=== PATIENT | female | born 1950 | race Caucasian/White ===

== ENCOUNTER 2018-11-15 19:50 | Inpatient (IN) | payer MEDICARE, OTHER ==
[~2018-11-15] VITALS: Ht 170.2 cm; Wt 134.3 kg
--- NOTE | ~2018-11-15 | OP ---
[facility] [address] [place] [address] OPERATIVE REPORT Name: REIN MORTENSEN Room: [address] IN .R.#: [id number] Admission: 11/16/18 Attend Phys: Francisco Núñez MD Discharge: Date of : 48 Report #: [id number] THIS REPORT FOR: //name// CC: Lani Núñez DATE OF SERVICE: 11/16/2018 PREOPERATIVE DIAGNOSIS: Acute appendicitis. POSTOPERATIVE DIAGNOSIS: Acute appendicitis. OPERATION: Laparoscopic appendectomy. SURGEON: Kevin Mcknight MD ANESTHESIA: General. ESTIMATED BLOOD LOSS: Minimal. SPECIMEN: Appendix. DESCRIPTION OF PROCEDURE: After informed consent was obtained, the patient was brought to the operating room and placed supine. SCDs were placed and working. Preoperative antibiotics were administered, general anesthesia was induced. The abdomen was prepped and draped in the usual sterile fashion. A 5 mm incision was made in the left upper quadrant. A 5 mm trocar was placed under direct vision. Pneumoperitoneum established. Right lower quadrant and left lower quadrant 5 mm ports were placed. The appendix was noted to be inflamed consistent with appendicitis. It was grasped and retracted anteriorly. A window was made in the mesoappendix. The base of the appendix was stapled off with a IVELISSE blue load stapler. Mesoappendix was ligated with a IVELISSE white load stapler. Appendix was removed through an Endopouch. The fascia in the right upper quadrant was closed with a [id number] 0 Vicryl. Skin was closed with 4-0 Monocryl. Incisions were sealed with Dermabond. COMPLICATIONS: None. DISPOSITION: The patient was taken to recovery in satisfactory condition. By: 1407 1418Kevin Mcknight MD /nt
[~2018-11-15 19:50] MED LIST: CLONAZEPAM 0.50.5 M1; COUMADIN 2.5MG2.5 M1; COZAAR 50 MG TA50 M1 PO; GLYBURIDE 2.52.5 M1; PROZAC40 MG; SORINE 80 MG TA80 M1; SPIRONOLACTONE25 M1
[2018-11-15 20:06] VITALS: BP 148/54
[2018-11-15 20:26] LABS: ABSOLUTE BASOPHILS 0.1 thou/uL (0.0-0.2); ABSOLUTE EOSINOPHILS 0.2 thou/uL (0.0-0.7); ABSOLUTE MONOCYTES 0.6 thou/uL (0.0-1.2); ABSOLUTE NEUTROPHILS 7.3 thou/uL (1.6-8.1); BASOPHILS 0.8 %; HEMATOCRIT 43.5 % (37.0-47.0); HEMOGLOBIN 14.2 gm/dL (12.0-15.0); LYMPHOCYTES 10.5 %; MCH 28.2 pg (26.0-34.0); MCHC 32.8 g/dL (28.0-37.0); MCV 86.1 fL (80.0-100.0); MONOCYTES 6.2 %; MPV 7.8 fl. (7.2-11.1); NUCLEATED RBCS 0 /100WBC; PLATELET COUNT* 258 thou/uL (150-400); POLYS 80.5 %; RBC 5.05 mil/uL (4.20-5.00); RDW-CV 14.6 % (10.5-14.5); WBC 9.1 thou/uL (4.0-11.0)
[2018-11-15 20:48] LABS: ALBUMIN 3.1 g/dL (3.4-5.0); ALKALINE PHOSPHATASE 70 U/L (46-116); ANION GAP 4 mmol/L (7-16); BUN 25 mg/dL (7-18); CALCIUM 9.3 mg/dL (8.5-10.1); CHLORIDE 99 mmol/L (98-107); CO2 37 mmol/L (21-32); CREATININE 1.5 mg/dL (0.6-1.3); GLUCOSE 112 mg/dL (70-99); POTASSIUM 4.8 mmol/L (3.5-5.1); SGOT 13 U/L (15-37); SGPT 14 U/L (30-65); SODIUM 140 mmol/L (136-145); TOTAL BILIRUBIN 0.3 mg/dL (<0.1-1.0); TOTAL PROTEIN 7.7 g/dL (6.4-8.2); TROPONIN-I LEVEL <0.06 ng/mL (<0.06)
[2018-11-15 21:57] LABS: URINE BILIRUBIN NEGATIVE (Negative); URINE BLOOD TRACE (Negative); URINE CLARITY CLEAR; URINE COLOR YELLOW; URINE GLUCOSE-RANDOM NEGATIVE (Negative); URINE KETONES NEGATIVE (Negative); URINE LEUKOCYTES-REFLEX NEGATIVE (Negative); URINE NITRITE-REFLEX NEGATIVE (Negative); URINE PROTEIN NEGATIVE (Negative); URINE SPECIFIC GRAVITY 1.015 (1.005-1.030); URINE UROBILINOGEN 0.2 E.U./dl (0.2-1.0)
[2018-11-15 23:14] LABS: APTT 55.3 Seconds (25.0-31.3); PROTIME 30.4 Seconds (9.20-11.50)
[2018-11-16] VITALS (11 sets, daily range): BP systolic 93–136; BP diastolic 31–60
--- NOTE | 2018-11-16 05:25 | NUR ---
RECIEVED PT FROM ED ASSESSMENT AND DATA BASE COMPLETED, VERBALIZED UNDERSTANDING DENIES PAIN UPON ARRIVAL TO UNIT. BLOOD CONSENT SIGNED FOR FFP, INFUSING AFTER INFUSION COMPLETED PT C/O ITCHING AND NOTED HIVES ON NECK CHEST AND ARMS, DR HEREDIA NOTIFED ORDER RECIEVED FOR PO BENADRYL VSS O2 82 ON ROOM AIR O2 AT 2L APPLIED AFTER PT ARRIVED TO UNIT. WILL CONITNUE TO [facility] MONITOR.
[2018-11-16 10:49] LABS: INR 1.9; PROTIME 19.4 Seconds (9.20-11.50)
--- NOTE | 2018-11-16 17:47 | EKG ---
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[facility] : 1950 Requested By: Valerie Snyder Order Number: [id number] MD: River Jennings Measurements Intervals [place] Rate: 68 P: 65 ID: 168 QRS: 88 QRSD: 141 T: 45 QT: 440 QTc: 469 Interpretive Statements Sinus rhythm Right bundle branch block Compared to ECG 01/14/2013 11:44:12 Sinus bradycardia no longer present Sinus arrhythmia no longer present Electronically Signed On 11-16-2018 17:47:40 CDT by River Jennings [email or web address] <ELECTRONICALLY SIGNED> By: River Jennings MD, FACC 11/16/18 1747 2100 2100 River Jennings MD, [facility] /EPI
--- NOTE | 2018-11-16 17:49 | NUR ---
PATIENT ALERT AND ORIENTED X 4. VITAL SIGNS STABLE ON 3L O2 NASAL CANULA. AFEBRILE. UP WITH STAND BY ASSIST. IV PATENT AND SALINE LOCKED. DENIES NAUSEA. PAIN BEING MANAGED WITH PO MEDICATION. HOURLY ROUNDS MAINTAINED THROUGHOUT THE SHIFT. CALL LIGHT WITHIN REACH. NURSING WILL CONTINUE TO MONITOR.
--- NOTE | 2018-11-16 17:54 | NUR ---
PATIENT ALERT AND ORIENTED X 4. VITAL SIGNS STABLE ON 3L O2 NASAL CANULA. AFEBRILE. CAPNO IN PLACE. UP WITH ASSIST OF ONE TO THE BATHROOM. IV PATENT WITH FLUIDS INFUSING PER MAR. DENIES PAIN AND NAUSEA AT THIS TIME. TOLERATING CARB CONTROL DIET. HOURLY ROUNDS MAINTAINED THROUGHOUT THE SHIFT. CALL LIGHT WITHIN REACH. NURSING WILL CONTINUE TO MONITOR.
[2018-11-17] VITALS: BP 123/54
[2018-11-17 04:00] VITALS: BP 120/56
[2018-11-17 04:34] LABS: HEMATOCRIT 35.2 % (37.0-47.0); MCH 27.9 pg (26.0-34.0); MCHC 32.1 g/dL (28.0-37.0); MCV 86.8 fL (80.0-100.0); MPV 8.4 fl. (7.2-11.1); NUCLEATED RBCS 0 /100WBC; RBC 4.05 mil/uL (4.20-5.00); RDW-CV 14.8 % (10.5-14.5); WBC 10.8 thou/uL (4.0-11.0)
[2018-11-17 04:47] LABS: HEMOGLOBIN 11.3 gm/dL (12.0-15.0); PLATELET COUNT* 180 thou/uL (150-400)
[2018-11-17 04:57] LABS: CREATININE 1.7 mg/dL (0.6-1.3); POTASSIUM 5.2 mmol/L (3.5-5.1)
--- NOTE | 2018-11-17 05:22 | NUR ---
ASSUMED PT CARE AT 1930. PT ALERT AND ORIENTED X4, POLITE AND COOPERATIVE WITH CARES. IV TO RIGHT AC INFUSING FLUIDS PER MAR. HYDROCODONE ONCE THIS SHIFT. PT ON CAPNO OVERNIGHT. ON 3L O2 PER NC. NO NAUSEA. THREE LAP SITES TO ABDOMEN INTACT SEALED WITH DERMABOND. USES CALL LIGHT APPROPRIATELY. CALL LIGHT AND FREQUENTLY USED ITEMS WITHIN REACH. HOURLY ROUNDING IN PROGRESS, WILL CONTINUE TO MONITOR.
[2018-11-17 06:38] LABS: ABSOLUTE LYMPHOCYTES 0.4 thou/uL (0.8-5.3); ABSOLUTE MONOCYTES 0.1 thou/uL (0.0-1.2); ABSOLUTE NEUTROPHILS 10.3 thou/uL (1.6-8.1); ATYPICAL MONONUCLEARS 1 %; PLATELET ESTIMATE ADEQUATE
[2018-11-17 08:00] VITALS: BP 121/45
[2018-11-17 12:48] VITALS: BP 121/45
[2018-11-17] MEDS ORDERED: SENNA8.6 MG PO (13:00)
[2018-11-17] MEDS ORDERED: NORCO 5-325 TA1 EACH PO (13:01)
[2018-11-17] MEDS ORDERED: MELATONIN1 MG PO (13:03)
[2018-11-17] MEDS ORDERED: TYLENOL EXTRA500 MG PO (13:04)
--- NOTE | 2018-11-17 14:51 | NUR ---
PT LEFT UNIT BY WHEELCHAIR WITH NURSING STAFF. WENT HOME WITH SIBLING. DISCHARGE PAPERWORK AND PRESCRIPTIONS GIVEN. IV OUT. PERSONAL ITEMS SENT WITH PT.
--- NOTE | 2018-11-19 10:07 | PATH ---
[address] [address] PATHOLOGY RPT PROCEDURE Name: OLGA NELSON Room: [address] IN .R.#: [id number] Admission: 11/16/18 Date of : 48 Discharge: 11/17/18 Report #: [id number] Path Case #: [id number] [facility] Accession Number: [id number] . 01 Material submitted: . APPENDIX . 01 Clinical history: . Acute appendicitis . 02 Diagnosis: Appendix: - Acute appendicitis, periappendicitis and serositis. (JEFFERY:sandrita; 11/18/2018) MBR/11/18/2018 . 02 Electronically signed: . Gary Ellis MD, Pathologist NPI- [id number] . 01 Gross description: . The specimen is received in formalin, labeled "Olga Nelson, appendix", is an appendix measuring 4.6 cm in length and up to 0.7 cm in diameter with abundantly attached mesoappendix measuring 5.4 x 2.7 x 1.4 cm. The proximal resection margin is closed by a linear staple line measuring 1.3 cm in length with an average 0.2 cm width. The staple line and the adjacent serosa is inked black. The proximal serosa and the adjacent mesoappendix shows possible rondon-white exudate with a possible perforation that is 0.4 cm from the distal staple line margin. The lumen is not dilated and the wall has an average thickness of 0.2 cm. No discrete masses or fecalith identified. [employer] tissue is submitted as follows: A1. Proximal margin inked black and perforation inked blue. A2. Mid section and distal tip (SWS; 11/17/2018) SHS/SHS . 02 Pathologist provided ICD-10: K35.80, K65.8 . 02 CPT . 643399 Specimen Comment: A courtesy copy of this report has been sent to Specimen Comment: [phone], , . Specimen Comment: Report sent to ,DR HEREDIA / DR NATALIA DENISE Specimen Comment: A duplicate report has been generated due to demographic updates. Performed at: [address] [place] [address] PATHOLOGY RPT PROCEDURE Name: OLGA NELSON JESUS Room: [address] IN M.R.#: [id number] Admission: 11/16/18 Date of : 48 Discharge: 11/17/18 Report #: [id number] Path Case #: [id number] [facility] [address] [facility] [address], [place], [place] [id number] MD Loki Osborn MD Phone: [phone] Performed at: [address] [place] [id number] MD Gary Ellis MD Phone: [phone]
== END 2018-11-17 13:55 | disposition home or self-care (01) | DRG 342 ==
LOC: M.ERS 19:50 → M.TBA-ER 11-16 00:02 → M.ORTHSURG 11-16 00:02
PROVIDERS: Nurse Practitioner Family; ADMIT Family Medicine
DX: K35.80 Unspecified acute appendicitis (principal); N17.9 Acute kidney failure, unspecified; N18.4 Chronic kidney disease, stage 4 (severe); Z68.42 Body mass index [BMI] 45.0-49.9, adult; E66.01 Morbid (severe) obesity due to excess calories; I48.2 Chronic atrial fibrillation; J44.9 Chronic obstructive pulmonary disease, unspecified; M54.32 Sciatica, left side; M54.31 Sciatica, right side; E11.22 Type 2 diabetes mellitus with diabetic chronic kidney disease; Z79.01 Long term (current) use of anticoagulants; Z79.899 Other long term (current) drug therapy; Z88.8 Allergy status to other drugs, medicaments and biological substances; Z87.891 Personal history of nicotine dependence

== ENCOUNTER 2021-08-08 14:03 | Inpatient (IN) | payer OTHER ==
[~2021-08-08] VITALS: Ht 170.2 cm; Wt 133.7 kg
[~2021-08-08 14:03] MED LIST changes: +MELATONIN1 MG PO; +NORCO 5-325 TA1 EACH PO; +SENNA8.6 MG PO; +TYLENOL EXTRA500 MG PO
[2021-08-08 14:07] VITALS: BP 101/74
[2021-08-08 14:19] LABS: ABSOLUTE EOSINOPHILS 0.2 thou/uL (0.0-0.7); ABSOLUTE LYMPHOCYTES 0.6 thou/uL (0.8-5.3); ABSOLUTE MONOCYTES 0.6 thou/uL (0.0-1.2); ABSOLUTE NEUTROPHILS 7.2 thou/uL (1.6-8.1); BASOPHILS 0.5 %; HEMATOCRIT 43.5 % (37.0-47.0); HEMOGLOBIN 14.1 gm/dL (12.0-15.0); LYMPHOCYTES 7.2 %; MCH 28.5 pg (26.0-34.0); MCHC 32.4 g/dL (28.0-37.0); MCV 88.1 fL (80.0-100.0); MONOCYTES 7.1 %; NUCLEATED RBCS 0 /100WBC; PLATELET COUNT* 201 thou/uL (150-400); POLYS 83.2 %; RBC 4.94 mil/uL (4.20-5.00); RDW-CV 14.8 % (10.5-14.5); WBC 8.7 thou/uL (4.0-11.0)
[2021-08-08 14:23] LABS: CALCIUM 9.5 mg/dL (8.5-10.1); CREATININE 1.7 mg/dL (0.6-1.3); POTASSIUM 4.6 mmol/L (3.5-5.1)
[2021-08-08 14:28] LABS: TOTAL BILIRUBIN 0.6 mg/dL (<0.1-1.0); TOTAL PROTEIN 7.7 g/dL (6.4-8.2)
[2021-08-08] MEDS ORDERED: PERCOCET PO (15:19)
--- NOTE | 2021-08-08 15:47 | NUR ---
PT UNABLE TO GET UP OUT OF BED AND AMBULATE, PT TO BE ADMITTED TO HOSPITAL
[2021-08-08 16:47] LABS: APTT 34.1 Seconds (25.0-31.3); PROTIME 20.3 Seconds (9.20-11.50)
[2021-08-08 18:07] VITALS: BP 100/75
[2021-08-08 18:15] VITALS: BP 97/77
[2021-08-08 19:45] VITALS: BP 110/62
--- NOTE | 2021-08-08 19:48 | NUR ---
pt admitted after fall down 3 stairs. broke her left ankle. pt will have surgery tomorrow to fix ankle. pt inr was 2.0 held the coumadin due to surgery tomorrow. pt will be npo after midnight.
[2021-08-09 04:07] LABS: INR 2.2; PROTIME 21.8 Seconds (9.20-11.50)
[2021-08-09 05:08] VITALS: BP 124/44
--- NOTE | 2021-08-09 06:51 | NUR ---
PT SLEPT OFF AND ON OVERNIGHT. RECEIVING PAIN MED PO AND IV PRN WITH FAIR L ANKLE PAIN CONTROL.NPO SINCE MIDNIGHT, TO OR THIS AFTERNOON. AOX4, ABLE TO USE CALL LITE AND MAKE NEEDS KNOWN. PT TURNED AND REPOSITIONED FOR COMFORT PRN. O2 2L NC. BED ALARM ON FOR SAFETY, CALL LITE IN EASY REACH. USING BEDPAN WITH ASSIST TO VOID OVERNIGHT. LLE, WITH JOSÉ ANTONIO WRAP SOFT BRACE IN PLACE.
[2021-08-09 08:00] VITALS: BP 129/57
--- NOTE | 2021-08-09 09:40 | NUR ---
Pt is admitted on 08/08/21 with Left Ankle Fx. Attempted to assess patient but she is very sedated from pain medications. She is to have an ORIF of her Left Ankle later today. Called sister - Yu Hernandez at: [phone] - who is a RN/Wound Care nurse presently in [place], [place] and about to board a flight to another amo so discussion was very brief. Yu is stating pt has no one at home to assist patient so she needs SNF. In medical records it is noted another sister - Melissa Campbell so will attempt to clarify if patient lives alone or with another sister. Pt was recently at [facility] for low blood sugar and family is contributing this to her fall. Yu is asking about options for continued Rehab. Discussed SNF options - [facility], [facility], [facility], and [facility]. Sister is stating she is aware of all the older facilities in the area and their previous citation hx. Discussed new facility - [facility]. Sister intends to speak to family and call friends who are social workers to obtain their opinions of what SNF would be the best option. Daughter - Yudy lives in [place]. For now Yu is leaning towards [facility] and [facility]. Will check both of those facilities today for bed availability. Discussed with sister that with an ankle fx likely a short stay and possible discharge with in 24 -48 hours of sx if pain controlled. Yu is asking about Acute Rehab. Discussed at length an ankle fracture is not a qualifying diagonosis. Pt was independent previously in ADL's and Mobility. She does have a rollinator that she utilizes when her back is bothering her. CM to continue to follow for discharge planning and SNF placement.
[2021-08-09] MEDS ORDERED: HYDRALAZINE 2525 MG PO (11:05)
[2021-08-09] MEDS ORDERED: SERTRALINE HCL100 MG PO (11:06)
[2021-08-09] MEDS ORDERED: XARELTO1 EACH PO (11:08)
[2021-08-09] MEDS ORDERED: AMLODIPINE-OLM1 EAC1 PO (11:09)
[2021-08-09] MEDS ORDERED: GLIPIZIDE 10 MG10 MG PO (11:10)
[2021-08-09 11:38] VITALS: BP 142/68
--- NOTE | 2021-08-09 14:25 | NUR ---
PATIENT OFF FLOOR TO PRE-OP VIA BED ACCOMPANIED BY PACU NURSES.
[2021-08-09 19:47] VITALS: BP 134/42
[2021-08-10] VITALS (9 sets, daily range): BP systolic 99–147; BP diastolic 29–57
[2021-08-10 04:06] LABS: HEMATOCRIT 40.9 % (37.0-47.0); HEMOGLOBIN 12.5 gm/dL (12.0-15.0); MCH 28.2 pg (26.0-34.0); MCHC 30.6 g/dL (28.0-37.0); MCV 92.2 fL (80.0-100.0); MPV 8.3 fl. (7.2-11.1); RBC 4.44 mil/uL (4.20-5.00); RDW-CV 15.2 % (10.5-14.5); WBC 11.8 thou/uL (4.0-11.0)
[2021-08-10 04:21] LABS: INR 2.8
[2021-08-10 04:26] LABS: CALCIUM 8.2 mg/dL (8.5-10.1); CREATININE 2.7 mg/dL (0.6-1.3); MAGNESIUM 2.2 mg/dL (1.8-2.4); POTASSIUM 4.9 mmol/L (3.5-5.1)
[2021-08-10 04:27] LABS: PROTIME 27.7 Seconds (9.20-11.50)
[2021-08-10 09:12] LABS: BE 0.5 mmol/L (-2 to +3); PO2 76.4 mmHg (75.0-100.0)
[2021-08-10 09:18] LABS: PCO2 93.5 mmHg (35.0-45.0)
[2021-08-10 09:19] LABS: pH 7.155 (7.340-7.450)
[2021-08-10] MEDS ORDERED: ROSUVASTATIN CA10 MG PO (11:09)
[2021-08-10] MEDS ORDERED: FUROSEMIDE 40 M40 MG PO (11:13)
--- NOTE | 2021-08-10 11:47 | EKG ---
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 : 1950 Requested By: Larisa Dumont Order Number: [id number] MD: Raffaele Blanton Measurements Intervals [place] Rate: 75 P: 69 PA: 179 QRS: 118 QRSD: 148 T: 25 QT: 437 QTc: 489 Interpretive Statements Sinus rhythm RBBB and LPFB Compared to ECG 11/15/2018 21:00:34 Left posterior fascicular block now present Electronically Signed On 08-10-2021 11:47:27 ETL BI DEVELOPER by Raffaele Blanton [email or web address] <ELECTRONICALLY SIGNED> By: Raffaele Blanton MD, [facility] 08/10/21 1147 1453 1453 Raffaele Blanton MD, [facility] /EPI
--- NOTE | 2021-08-10 13:51 | NUR ---
Pt is post op day 1 - of an ORIF of Left Ankle. Per doctor pt became sedated with pain medications. PT saw pt but pt was not able to participate very well. Family would like pt to discharge to SNF. Completed online DA124 form - Code: [id number]. Provided code to physician. With pt being sedated in therapy today this delays in getting pt accepted and approved for SNF. Pt's sister - Yu provided 3 choices of SNF: [facility]st [facility] - [facility] - spoke with Kaycee and she is checking to see if they will have bed availability for Fri/Sat. Faxed clinicals to: [phone]. 2nd Choice - [facility]. Faxed a referral to: [phone]. Called and left a message for admissions. 3rd Choice - [facility] - Per Nalini they will not have any beds open till possibly 08/14 or 08/15 of next week.
[2021-08-10 15:11] LABS: BE -1.7 mmol/L (-2 to +3); PO2 73.5 mmHg (75.0-100.0)
[2021-08-10 15:15] LABS: PCO2 105.9 mmHg (35.0-45.0); pH 7.087 (7.340-7.450)
[2021-08-10 17:09] LABS: CALCIUM 8.1 mg/dL (8.5-10.1); CREATININE 3.4 mg/dL (0.6-1.3)
[2021-08-10 17:13] LABS: POTASSIUM 6.2 mmol/L (3.5-5.1)
--- NOTE | 2021-08-10 18:08 | NUR ---
TRANSFER FROM [facility] TELEPHONE REPORT GIVEN PRIOR TO ARRIVAL PATIENT TO VIA BED O2 AT 6L NC PATIENT ORIENTED TO CALL LIGHT AND INSTRUCTED NOT TO GET UP WITHOUT ASSISTANCE C/O L ANKLE PAIN WILL CHECK FOR ORDERS AND REASSESS
[2021-08-11] VITALS (17 sets, daily range): BP systolic 96–143; BP diastolic 35–64
--- NOTE | 2021-08-11 06:21 | NUR ---
RADIOLIST CALLED REPORTED HEAD CT NEGATIVE; REPORTED TO ADAM MEJIA
[2021-08-11 07:09] LABS: HEMATOCRIT 37.6 % (37.0-47.0); HEMOGLOBIN 11.4 gm/dL (12.0-15.0); MCH 27.7 pg (26.0-34.0); MCHC 30.3 g/dL (28.0-37.0); MCV 91.4 fL (80.0-100.0); MPV 8.2 fl. (7.2-11.1); RBC 4.12 mil/uL (4.20-5.00); RDW-CV 15.3 % (10.5-14.5); WBC 12.3 thou/uL (4.0-11.0)
[2021-08-11 07:18] LABS: APTT 62.9 Seconds (25.0-31.3); INR 3.9; PROTIME 38.1 Seconds (9.20-11.50)
[2021-08-11 07:25] LABS: CALCIUM 7.7 mg/dL (8.5-10.1); CREATININE 4.2 mg/dL (0.6-1.3); POTASSIUM 5.5 mmol/L (3.5-5.1)
[2021-08-11 07:29] LABS: ALBUMIN 2.2 g/dL (3.4-5.0); TOTAL BILIRUBIN 0.7 mg/dL (<0.1-1.0); TOTAL PROTEIN 6.6 g/dL (6.4-8.2)
--- NOTE | 2021-08-11 08:22 | NUR ---
ASSUMED CARE OF PT 08/10/21 AT APPROX 1915. AT 2056 PHYSICIAN CONTACTED; PT BLOOD PRESSURE 103/30 2ND BP 99/42, ORDER GIVEN TO INCREASE IV FLUIDS TO 120M/H. AT 2256 CONTACTED PHYSICIAN FOR CLARIFICATION IF IV TO BE SALINE LOCKED AFTER CURRENT BAG 1OF1 COMPLETED OR CHANGED TO CONTINUOUS FLUIDS; ORDER GIVEN FOR CONTINUOUS IV FLUIDS NS AT 120M/H. AT APPROX 0545 PT SHOWED SIGNS OF STROKE, STROKE CODE ACTIVATED, CT HEAD COMPLETED, NEUROLOGY CONSULTED. AT 0638 NEURO TELEMED COMPLETED, RECOMMENDATIONS GIVEN FOR CT ANGIOGRAM, MRI OF BRAIN (PT NOT CANDIDATE FOR TPA). DR. GUADARRAMA NOTIFIED BY YOU CALL OF NEURO RECOMMENDATIONS. AT [address] SORENSEN TO PLACE ORDERS RECOMMEDED BY NEURO. DR. SORNESEN ALSO NOTIFIED PT HAS NOT HAD ANY URINE OUTPUT, BLADDER SCAN AT 0152 SHOWED 21MLS; ORDER GIVEN TO CHANGE IV FLUIDS BACK DOWN TO 100M/H.
--- NOTE | 2021-08-11 08:36 | NUR ---
PT STATES TO ASK HER DAUGHTER ABOUT MEDICAL HX FOR MRI SCREENING. PT DAUGHTER SILVIA CALLED AND VERIFIED ABOUT MRI SCREENING.
--- NOTE | 2021-08-11 08:38 | NUR ---
PTS DAUGHTER SILVIA STATED PT WAS IN [facility] X1 MONTH AGO WITH DIABETIC COMA. STATES PT LIVES WITH HER SISTER AT [place]. SISTER IS ABLE TO ASSIST WITH COOKING MEALS, SOME CLEANING, HOWEVER NOT ABLE TO ASSIST PT WITH MOBILITY
--- NOTE | 2021-08-11 09:28 | NUR ---
PT HAVING SWALLOWING ISSUES, POCKETING WATER, NOT ABLE TO DRINK WITHOUT COUGHING. PT MADE NPO AND MEMBER SERVICE SPECIALIST EVAL ORDER ENTERED.
--- NOTE | 2021-08-11 09:30 | EKG ---
[place] [address] ELECTROCARDIOGRAM REPORT Name: ERIN MORTENSEN Room: [address] ADM IN M.R.#: [id number] Admission: 08/08/21 Attend Phys: Larisa Dumont, Discharge: Date of : 48 Date of Service: 08/11/21 0645 Report #: [id number] THIS REPORT FOR: //name// [facility] Test Date: 2021-08-11 Test Time: 06:45:37 Pat Name: ERIN MORTENSEN Department: Room: [address] Gender: F Resource Manager: AMANDA : 1950 Requested By: Gene Zaragoza Order Number: [id number] Hector MD: Raffaele Blanton Measurements Intervals [place] Rate: 72 P: 62 MI: 171 QRS: 103 QRSD: 158 T: 38 QT: 477 QTc: 523 Interpretive Statements Sinus rhythm Right bundle branch block Compared to ECG 08/09/2021 14:53:47 No significant interval change Electronically Signed On 08-11-2021 9:30:41 SURPLUS PROPERTY DISPOSAL AGENT by Raffaele Blanton [email or web address] <ELECTRONICALLY SIGNED> By: Raffaele Blanton MD, [facility] 08/11/21 0930 0645 0645 Raffaele Blanton MD, [facility] /EPI
[2021-08-11 09:42] LABS: BE -2.8 mmol/L (-2 to +3)
[2021-08-11 09:47] LABS: PCO2 83.5 mmHg (35.0-45.0); PO2 145.7 mmHg (75.0-100.0); pH 7.143 (7.340-7.450)
--- NOTE | 2021-08-11 10:14 | NUR ---
ORDERS FROM DR SMITH, MOVE TO ICU. HAND FOLDER CLEARING OUT ROOM IN ICU FOR PT TO TRANSFER TO ONCE MRI DONE.
--- NOTE | 2021-08-11 11:08 | NUR ---
UPON ROUNDING THIS AM AND AFTER PT WENT TO MRI, DECISION MADE BASED ON CXR TO REPEAT COVID TEST. MRI IMMEDIATELY NOTIFEID PT WAS IN MRI AT THE TIME. COVID SWAB RECOLLECTED, SENT TO LAB.
--- NOTE | 2021-08-11 12:07 | NUR ---
THIS RN JUST VERIFIED WITH ICU. PT TO TX TO ICU BED 8, STILL DIRTY.
--- NOTE | 2021-08-11 14:00 | NUR ---
pt reporting 8/10 pain in LLE with surgery. Pt was given narcan this AM. Dr Eric suggested fentanyl as pt NPO r/t swallow issues. Dr Salazar notified to make decision.
--- NOTE | 2021-08-11 14:42 | NUR ---
attempt to call report to macy LOCK AND DAM OPERATOR. will call this RN back
--- NOTE | 2021-08-11 15:01 | NUR ---
JACKIE cavazos given report
--- NOTE | 2021-08-11 15:01 | NUR ---
PLAN OF CARE: PREVIOUS PLAN HAD BEEN FOR PT TO D/C TO [facility] WHEN MEDICALLY STABLE. HOWEVER THAT PLAN IS ON-HOLD AT THIS TIME PT HAS PCR PENDING. IF PT IS COVID POSITIVE [facility] WILL NOT BE ABLE TO ACCEPT THE PT UNITL 10 DAYS POST COVID POSITIVE TEST. CM SPOKE TO THE PT AND HER DTR ARLEN AT THE BEDSIDE TO DISCUSS DPOA. DPOA PAPERWORK COMPLETED. COPY PLACED ON CHART, AND COPIES PROVIDED PT PT AND FAMILY. CM WILL REMAIN AVAILABLE TO ASSIST AND FOLLOW FOR CM D/C PLANNING NEEDS.
--- NOTE | 2021-08-11 15:28 | NUR ---
PT TAKEN TO ICU
[2021-08-11 15:29] LABS: BE -5.7 mmol/L (-2 to +3)
[2021-08-11 15:46] LABS: PCO2 80.5 mmHg (35.0-45.0); pH 7.113 (7.340-7.450)
--- NOTE | 2021-08-11 16:27 | 2DMMODE ---
[place] [address] 2 D/M-MODE ECHOCARDIOGRAM Name: ERIN MORTENSEN [facility] IN .R#: [id number] Admission: 08/08/21 Attend Phys: Larisa Dumont, Discharge: Date of : 48 Date of Service: 08/11/21 1626 Report #: [id number] THIS REPORT FOR: cc: SHMUEL VELEZ APRN, ASHLEY APRN Holkins,Raffaele Garza MD [facility] ~ APPROVED REPORT Study performed: 08/11/2021 15:35:48 EXAM: Comprehensive 2D, Doppler, and color-flow Echocardiogram Patient Location: In-Patient Room #: 001 Status: routine BSA: 2.36 HR: 72 bpm BP: 143/49 mmHg Rhythm: NSR Other Information Study Quality: Adequate Technically limited study due to poor parasternal windows. Indications Dyspnea 2D Dimensions LVOT Diam: 22.38 (18-24mm) Volumes Left Atrial Volume (Systole) LA ESV Index: 20.74 mL/m2 Aortic Valve AoV Peak Eric.: 1.80 m/s AO Peak Gr.: 13.00 mmHg LVOT Max P.81 mmHg AO Mean Gr.: 6.59 mmHg LVOT Mean P.58 mmHg LVOT Max V: 1.48 m/s AO V2 VTI: 39.64 cm LVOT Mean V: 0.85 m/s DINORA (VTI): 3.25 cm2 LVOT V1 VTI: 32.76 cm Mitral Valve E/A Ratio: 0.[address] [address] 2 D/M-MODE ECHOCARDIOGRAM Name: ERIN MORTENSEN Room: [address] IN [facility]#: [id number] Admission: 08/08/21 Attend Phys: Larisa Dumont, Discharge: Date of : 48 Date of Service: 08/11/21 1626 Report #: [id number] MV Decel. Time: 256.92 ms MV E Max Eric.: 1.07 m/s MV PHT: 74.51 ms MVA (PHT): 2.95 cm2 TDI E/Lateral E': 7.64 E/Medial E': 13.38 Medial E' Eric.: 0.08 m/s Lateral E' Eric.: 0.14 m/s Left Ventricle The left ventricle is normal size. There is normal LV segmental wall motion. There is normal left ventricular wall thickness. Left ventricular systolic function is normal. The left ventricular ejection fraction is within the normal range. LVEF is 65%. Grade I - abnormal relaxation pattern. Right Ventricle The right ventricle is normal size. The right ventricular systolic function is normal. Atria The left atrium size is normal. The right atrium size is normal. Aortic Valve Mild aortic valve sclerosis. No aortic regurgitation is present. There is no aortic valvular stenosis. Mitral Valve Mild mitral annular calcification. There is no mitral valve regurgitation noted. No evidence of mitral valve stenosis. Tricuspid Valve The tricuspid valve is normal in structure. There is no tricuspid valve regurgitation noted. Pulmonic Valve The pulmonary valve is normal in structure. There is no pulmonic valvular regurgitation. Great Vessels The aortic root is normal in size. IVC is normal in size and collapses >50% with inspiration. [place] [address] 2 D/M-MODE ECHOCARDIOGRAM Name: ERIN MORTENSEN Room: [address] IN M.R.#: [id number] Admission: 08/08/21 Attend Phys: Larisa Dumont, Discharge: Date of : 48 Date of Service: 08/11/21 1626 Report #: [id number] There is no pericardial effusion. <Conclusion> The left ventricle is normal size. There is normal left ventricular wall thickness. Left ventricular systolic function is normal. The left ventricular ejection fraction is within the normal range. LVEF is 65%. Grade I - abnormal relaxation pattern. The right ventricle is normal size. The left atrium size is normal. Mild aortic valve sclerosis. No aortic regurgitation is present. There is no aortic valvular stenosis. Mild mitral annular calcification. There is no mitral valve regurgitation noted. The tricuspid valve is normal in structure. IVC is normal in size and collapses >50% with inspiration. There is no pericardial effusion. There is normal LV segmental wall motion. <ELECTRONICALLY SIGNED> By: Raffaele Blanton MD, FACC 08/11/21 1626 1626 1626 Raffaele Blanton MD, FACC /INF
--- NOTE | 2021-08-11 16:51 | NUR ---
Pt arrived to the unit around 1514, this RN received report from JACKIE Disla. Pt A&OX2, self and place, has c/o pain but unable to receive any pain medication d/t mental status change. Pt on continuous BiPAP, diminished throughout, RR at 16. S1,S2 heard, pt in SR on the monitor, HR: 73, BP: 140s/40s, generalized edema. Normoactive BSX4, last BM unknown per report, Gaytan in place with minimal output, urine is dark agnes in color. Only skin issues at this time are generalized bruising. Pt is to have a temporary dialysis catheter placed once she is settled in the ICU and intubation after. Pt has a fentanyl allergy on file, this RN asked the pt what her reaction was, pt stated that she became nauseous and threw up profusely the time before this admission. This information was relayed back to Dr. Bah. Will continue to monitor.
--- NOTE | 2021-08-11 19:16 | NUR ---
Physicians at the bedside placing temporary dialysis catheter. This RN received the call that intubation needed to happen per Dr. Bah. Dr. Villa was called over from ED, RIS kit at the bedside, RT present and running BiPAP following Dr. Villa's instructions. At 1743 100mg of Etomidate was administered via PIV, 20mg of succ was administered afterwards. Pt paralyzed and sedated for intubation. Dr. Villa placed a 7.5 ET tube, 22 at the lip. Vent settings to be set by RT. Propofol gtt started and running, will titrate per protocol. Will continue to monitor.
[2021-08-11 20:42] LABS: BE -2.7 mmol/L (-2 to +3)
[2021-08-11 20:51] LABS: PCO2 56.4 mmHg (35.0-45.0); PO2 371.1 mmHg (75.0-100.0)
[2021-08-12] VITALS (37 sets, daily range): BP systolic 117–172; BP diastolic 50–77
[2021-08-12 03:43] LABS: HEMATOCRIT 34.8 % (37.0-47.0); HEMOGLOBIN 10.7 gm/dL (12.0-15.0); MCH 27.8 pg (26.0-34.0); MCHC 30.9 g/dL (28.0-37.0); MCV 90.1 fL (80.0-100.0); MPV 8.3 fl. (7.2-11.1); RBC 3.86 mil/uL (4.20-5.00); RDW-CV 15.2 % (10.5-14.5); WBC 12.3 thou/uL (4.0-11.0)
[2021-08-12 03:58] LABS: CALCIUM 7.8 mg/dL (8.5-10.1); POTASSIUM 5.1 mmol/L (3.5-5.1)
[2021-08-12 11:40] LABS: PROTIME 49.2 Seconds (9.20-11.50)
[2021-08-12 11:43] LABS: INR 5.1
[2021-08-12 22:04] LABS: URINE BLOOD 3+ (Negative); URINE CLARITY SL CLOUDY; URINE COLOR YELLOW; URINE GLUCOSE-RANDOM NEGATIVE (Negative); URINE KETONES TRACE (Negative); URINE LEUKOCYTES NEGATIVE (Negative); URINE NITRITE NEGATIVE (Negative); URINE PROTEIN 1+ (Negative); URINE SPECIFIC GRAVITY 1.025 (1.005-1.030); URINE UROBILINOGEN 0.2 E.U./dl (0.2-1.0)
[2021-08-12 22:08] LABS: URINE BILIRUBIN 1+ (Negative)
[2021-08-12 22:10] LABS: ICTOTEST (BILI CONFIRMATORY) Negative (Negative)
[2021-08-12 22:15] LABS: HYALINE CASTS 4-10 Moderate /LPF (None Seen); SQUAMOUS >10 Many /LPF (0-3)
[2021-08-12 22:16] LABS: BACTERIA 1-9 Few /HPF (None Seen); URINE RBC 3-10 Few /HPF (0-2); URINE WBC 6-15 Few /HPF (0-5)
[2021-08-12 22:17] LABS: CRYSTALS None Seen /LPF (None Seen); MUCUS None Seen strn/LPF (None Seen)
[2021-08-13] VITALS (42 sets, daily range): BP systolic 105–156; BP diastolic 41–64
[2021-08-13 02:33] LABS: HEMATOCRIT 31.4 % (37.0-47.0); HEMOGLOBIN 10.2 gm/dL (12.0-15.0); MCH 28.1 pg (26.0-34.0); MCHC 32.5 g/dL (28.0-37.0); MCV 86.4 fL (80.0-100.0); MPV 7.6 fl. (7.2-11.1); RBC 3.63 mil/uL (4.20-5.00); RDW-CV 14.6 % (10.5-14.5); WBC 6.4 thou/uL (4.0-11.0)
[2021-08-13 02:50] LABS: CALCIUM 7.9 mg/dL (8.5-10.1); CREATININE 3.1 mg/dL (0.6-1.3); PHOSPHORUS* 3.5 mg/dL (2.5-4.9)
[2021-08-13 02:56] LABS: POTASSIUM 4.1 mmol/L (3.5-5.1)
[2021-08-13 06:06] LABS: HEPATITIS B SURFACE AG Negative (Negative)
--- NOTE | 2021-08-13 18:55 | NUR ---
Pt intubated and sedated. Only on propofol for sedation. On CLRT and tolerating. Following commands and comfortable on the vent. Tolerating tubefeeds. Ultrasound guided IV placed by anastesia. No fevers, no aprent pain, VSS, will continue to monitor.
[2021-08-14] VITALS (31 sets, daily range): BP systolic 116–177; BP diastolic 43–80
[2021-08-14 00:03] LABS: PROTIME 25.9 Seconds (9.20-11.50)
[2021-08-14 00:05] LABS: INR 2.6
[2021-08-14 05:07] LABS: INR 2.8; PROTIME 27.7 Seconds (9.20-11.50)
[2021-08-14 05:15] LABS: ALBUMIN 1.8 g/dL (3.4-5.0); CALCIUM 8.2 mg/dL (8.5-10.1); CREATININE 3.2 mg/dL (0.6-1.3); PHOSPHORUS* 3.9 mg/dL (2.5-4.9)
[2021-08-14 05:33] LABS: BE 0.2 mmol/L (-2 to +3); PCO2 38.5 mmHg (35.0-45.0); PO2 76.3 mmHg (75.0-100.0); pH 7.422 (7.340-7.450)
[2021-08-14 05:43] LABS: ALBUMIN 1.8 g/dL (3.4-5.0); CALCIUM 8.2 mg/dL (8.5-10.1); CREATININE 3.2 mg/dL (0.6-1.3); POTASSIUM 5.1 mmol/L (3.5-5.1); TOTAL BILIRUBIN 0.5 mg/dL (<0.1-1.0)
[2021-08-14 08:29] LABS: PLATELET ESTIMATE DECREASED
[2021-08-14 09:56] LABS: HEMATOCRIT 32.9 % (37.0-47.0); HEMOGLOBIN 10.6 gm/dL (12.0-15.0); MCH 28.1 pg (26.0-34.0); MCHC 32.3 g/dL (28.0-37.0); RBC 3.79 mil/uL (4.20-5.00); RDW-CV 14.6 % (10.5-14.5); WBC 5.9 thou/uL (4.0-11.0)
[2021-08-14 09:57] LABS: MPV 8.5 fl. (7.2-11.1); PLATELET COUNT* 146 thou/uL (150-400)
[2021-08-14 09:58] LABS: ABSOLUTE NEUTROPHILS 5.4 thou/uL (1.6-8.1)
[2021-08-14 09:59] LABS: ABSOLUTE LYMPHOCYTES 0.4 thou/uL (0.8-5.3); ABSOLUTE MONOCYTES 0.2 thou/uL (0.0-1.2)
[2021-08-14 15:16] LABS: BE -0.4 mmol/L (-2 to +3); PCO2 46.5 mmHg (35.0-45.0); PO2 87.1 mmHg (75.0-100.0); pH 7.357 (7.340-7.450)
--- NOTE | 2021-08-14 15:32 | NUR ---
Pt is now in the ICU. She is post op day 5 of an ORIF of Left Ankle with now respiratory failure. She is on a vent at 50% Fi02. [facility]charge [facility]. Faxed updates to [facility] today from the weekend. CM to continue to follow for discharge planning.
[2021-08-14 16:28] LABS: CALCIUM 8.6 mg/dL (8.5-10.1); CREATININE 3.2 mg/dL (0.6-1.3); POTASSIUM 4.5 mmol/L (3.5-5.1)
--- NOTE | 2021-08-14 23:44 | NUR ---
2320 REPORT CALLED. PT TRANSPORTED TO 209 VIA BED ON 4L NC. HEMODYNAMICALLY STABLE ON D/C FROM ICU. BREATHING REGULAR AND UNLABORED. BELONGINGS SENT WITH PATIENT.
[2021-08-15 00:20] VITALS: BP 118/51
[2021-08-15 04:20] LABS: HEMATOCRIT 33.6 % (37.0-47.0); HEMOGLOBIN 10.8 gm/dL (12.0-15.0); MCH 27.7 pg (26.0-34.0); MCHC 32.3 g/dL (28.0-37.0); MPV 7.9 fl. (7.2-11.1); RBC 3.91 mil/uL (4.20-5.00); RDW-CV 14.5 % (10.5-14.5); WBC 7.5 thou/uL (4.0-11.0)
[2021-08-15 05:11] LABS: ALBUMIN 1.9 g/dL (3.4-5.0); CALCIUM 8.3 mg/dL (8.5-10.1); CREATININE 3.1 mg/dL (0.6-1.3); POTASSIUM 4.5 mmol/L (3.5-5.1); TOTAL BILIRUBIN 0.6 mg/dL (<0.1-1.0); TOTAL PROTEIN 5.7 g/dL (6.4-8.2)
[2021-08-15 05:30] VITALS: BP 132/48
[2021-08-15 07:55] VITALS: BP 129/58
--- NOTE | 2021-08-15 10:55 | NUR ---
cm asked alicia tavares/ vita for updated evals. covid test dated 08/11, covid not detected. pt uses 4L of O2 at home via [employer]. Pt IV ABX
[2021-08-15 12:00] VITALS: BP 103/52
[2021-08-15 16:00] VITALS: BP 138/59
--- NOTE | 2021-08-15 18:17 | NUR ---
ASSUMMED CARE AT 0730. PT IS ALERT AND ORIENTED. ASSESSMENT DONE. PAIN CONTROL. PT HAS A COLON. PT HAD UNEVENFUL DAY. WILL CONTINUE CARE.
[2021-08-15 20:40] VITALS: BP 131/50
[2021-08-15 23:06] LABS: MYCOPLASMA PNEUMONIA IgG 235 U/mL (0-99); MYCOPLASMA PNEUMONIA IgM <770 U/mL (0-769)
[2021-08-16] VITALS: BP 137/58
[2021-08-16 04:00] VITALS: BP 168/79
[2021-08-16 04:23] LABS: HEMATOCRIT 32.4 % (37.0-47.0); HEMOGLOBIN 10.6 gm/dL (12.0-15.0); MCH 28.3 pg (26.0-34.0); MCHC 32.6 g/dL (28.0-37.0); MCV 86.8 fL (80.0-100.0); MPV 8.2 fl. (7.2-11.1); RBC 3.74 mil/uL (4.20-5.00); RDW-CV 14.7 % (10.5-14.5); WBC 6.3 thou/uL (4.0-11.0)
[2021-08-16 04:38] LABS: CALCIUM 8.5 mg/dL (8.5-10.1); CREATININE 2.8 mg/dL (0.6-1.3); POTASSIUM 4.5 mmol/L (3.5-5.1)
[2021-08-16 08:00] VITALS: BP 111/42
--- NOTE | 2021-08-16 08:25 | NUR ---
PATIENT HAS SLEPT OFF AND ON DURING THE NIGHT. VSS ON 5L 02 VIA NASAL CANNULA. MEDICATIONS GIVEN ORDERED AND CHARTED. MIDLINE TO LEFT UPPER ARM-SL. LEFT FOREARM-SL. LEFT ANKLE ELEVATED ON PILLOW. DRESSING TO LEFT LOWER EXTREMITY IS C/D/I. COLON TO DEPENDENT DRAINAGE WITH YELLOW URINE OUTPUT. FALL PRECAUTIONS IN PLACE AND HOURLY ROUNDS MADE. WILL CONTINUE WITH PLAN OF CARE AND NURSING TO MONITOR.
[2021-08-16 12:00] VITALS: BP 114/54
--- NOTE | 2021-08-16 13:07 | NUR ---
Met with patient to discuss SNF placement. Pt is alert and oriented today but deferred discussion to her daughter - Yudy at: [phone]. Called and discussed SNF placement at [facility] and family is in agreement. Pt was able to participate in therapy for the first time yesterday and clinical updates were faxed to [facility]: [phone]. Called and spoke with Kaycee in admissions. Discussed possible discharge 08/18/21 or over the weekend. Kaycee will likely submit for auth tommorow. Pt does remain on 5 liters. CM to continue to follow for discharge planning.
[2021-08-16 17:17] VITALS: BP 144/46
--- NOTE | 2021-08-16 19:42 | NUR ---
PT SITTING UP TO THE BED TURNED EVERY 2 HOURS. PT HAD ULTRA SOUND ON ABD. WILL CONTINUE TO MONITOR PLAN OF CARE.
[2021-08-16 21:40] VITALS: BP 118/40
[2021-08-17] VITALS: BP 136/58
[2021-08-17 04:00] VITALS: BP 122/53
[2021-08-17 06:04] LABS: HEMATOCRIT 32.6 % (37.0-47.0); HEMOGLOBIN 10.5 gm/dL (12.0-15.0); MCH 27.9 pg (26.0-34.0); MCHC 32.1 g/dL (28.0-37.0); MPV 8.3 fl. (7.2-11.1); RBC 3.75 mil/uL (4.20-5.00)
[2021-08-17 06:21] LABS: CALCIUM 8.4 mg/dL (8.5-10.1); CREATININE 2.5 mg/dL (0.6-1.3); POTASSIUM 4.4 mmol/L (3.5-5.1)
[2021-08-17 07:56] LABS: INR 1.7; PROTIME 16.9 Seconds (9.20-11.50)
[2021-08-17 08:00] VITALS: BP 122/50
--- NOTE | 2021-08-17 09:10 | NUR ---
PATIENT SLEPT WELL THROUGHOUT MOST OF THE NIGHT. VSS ON 5L 02 VIA NASAL CANNULA. MEDICATIONS GIVEN ORDERED AND CHARTED. PATIEN HAS REMAINED NWB ON LEFT EXTREMITY. DRESSING TO LEFT LOWER EXTREMITY IS C/D/I AND LEG/FOOT ELEVATED ON PILLOW. COLON TO DEPENDENT DRAINAGE WITH YELLOW URINE OUTPUT. FALL PRECAUTIONS IN PLACE AND HOURLY ROUNDS MADE. WILL CONTINUE WITH PLAN OF CARE AND NURSING TO MONITOR.
[2021-08-17 12:00] VITALS: BP 117/47; BP 118/60
[2021-08-17 16:00] VITALS: BP 130/53
--- NOTE | 2021-08-17 20:02 | NUR ---
PT UP TO CHAIR WITH PT TODAY AND HAD BATH BY OT. VSS AFEBRILE. PT GETTING IV ANTIBIOTICS AT SCHEDULED TIMES. WILL CONTINUYE TO MONITOR PLAN OF CARE.
[2021-08-17 20:45] VITALS: BP 123/53
[2021-08-18 02:47] VITALS: BP 125/56
[2021-08-18 05:55] VITALS: BP 109/45
--- NOTE | 2021-08-18 06:09 | NUR ---
PATIENT HAS SLEPT WELL THROUGHOUT MOST OF THE NIGHT. VSS ON 4L 02 VIA NASAL CANNULA. MEDICATIONS GIVEN ORDERED AND CHARTED. DRESSING TO LEFT ANKLE IS C/D/I AND EXTREMITY ELEVATED. LEFT UPPER ARM MIDLINE-SL. COLON TO DEPENDENT DRAINAGE WITH YELLOW URINE OUTPUT. FALL PRECAUTIONS IN PLACE AND HOURLY ROUNDS MADE. WILL CONTINUE WITH PLAN OF CARE AND NURSING TO MONITOR.
[2021-08-18 07:59] LABS: HEMATOCRIT 34.2 % (37.0-47.0); HEMOGLOBIN 10.9 gm/dL (12.0-15.0); MCH 27.9 pg (26.0-34.0); MCV 87.2 fL (80.0-100.0); MPV 8.4 fl. (7.2-11.1); RBC 3.92 mil/uL (4.20-5.00); RDW-CV 14.7 % (10.5-14.5); WBC 9.2 thou/uL (4.0-11.0)
[2021-08-18 08:00] VITALS: BP 124/63
[2021-08-18 08:12] LABS: INR 1.4; PROTIME 14.6 Seconds (9.20-11.50)
[2021-08-18 08:31] LABS: CALCIUM 8.5 mg/dL (8.5-10.1); CREATININE 2.3 mg/dL (0.6-1.3); POTASSIUM 4.7 mmol/L (3.5-5.1)
[2021-08-18] MEDS ORDERED: NORVASC5 MG PO (10:15)
[2021-08-18] MEDS ORDERED: DOXYCYCLINE 10100 MG PO (10:45)
[2021-08-18] MEDS ORDERED: PREDNISONE 10 M10 MG PO (10:45)
[2021-08-18 11:25] VITALS: BP 132/51
--- NOTE | 2021-08-18 13:18 | CON ---
[address] [address] CONSULTATION Name: ERIN MORTENSEN Room: [address] IN M.R.#: [id number] Admission: 08/08/21 Attend Phys: Larisa Dumont MD Discharge: Date of : 48 Report #: [id number] THIS REPORT FOR: cc: SHMUEL VELEZ APRN, ASHLEY APRN Khan, Abid R. MD ~ DATE OF CONSULTATION: 08/11/2021 NEPHROLOGY CONSULTATION CONSULTING PHYSICIAN: Larisa Dumont MD REASON FOR CONSULTATION: Acute kidney injury. HISTORY OF PRESENT ILLNESS: A 70-year-old female with a known history of chronic kidney disease, who was admitted with ankle fracture and pain related to that. She underwent ORIF procedure. I am asked to see her because of worsening kidney function. She has also had hypercapnic respiratory failure and is currently on BiPAP. She was last seen in our office on 02/28. Creatinine at that time was 1.4. On admission here, it was 1.7, yesterday 3.4, today 4.2. She has had diminished urine output despite being on IV fluids. She was newly started on ARB and was also on Lasix and Aldactone. Currently, she is stable and without any complaints. She was on losartan as an outpatient as well as spironolactone. REVIEW OF SYSTEMS: Constitutional, psych, heme, eyes, ENT, respiratory, cardiac, GI, , endocrine, all negative except as documented above. PAST MEDICAL HISTORY: Chronic kidney disease stage IIIB, hypertension, diabetes type 2. SOCIAL HISTORY: No current tobacco. FAMILY HISTORY: Not pertinent in 70-year-old female. CURRENT MEDICATIONS: Reviewed. PHYSICAL EXAMINATION: VITAL SIGNS: Blood pressure 107/39, pulse 72, respirations 18, temperature 36.4. GENERAL: No distress. HEENT: Eyes: Open. Ears: Externally normal. NECK: Supple. CARDIOVASCULAR: Regular rate. LUNGS: Diminished [place] [address] CONSULTATION Name: FESTUSERINPRIYA LEE Room: [address] IN ..#: [id number] Admission: 08/08/21 Attend Phys: Larisa Dumont MD Discharge: Date of : 48 Report #: [id number] GASTROINTESTINAL: Negative. MUSCULOSKELETAL: Nontender. NEUROLOGIC: Awake and alert. LABORATORY DATA: White cell count 12.3, hemoglobin 11.4, platelets 151. Sodium 134, potassium 5.5, chloride 96, bicarbonate 29, BUN 50, creatinine 4.2, glucose 130, calcium 7.7, albumin 2.2. ASSESSMENT: 1. Acute kidney injury with a creatinine up to 4.2 on 08/11. Admission creatinine was 1.7. Outpatient creatinine in 12/2020 was 1.4. She was last seen on 02/28 and normally follows with Dr. Ghosh as an outpatient. 2. Chronic kidney disease stage IIIB, followed by Dr. Ghosh as an outpatient. 3. Hypertension. 4. Diabetes type 2. 5. Respiratory acidosis with a pCO2 as high as 106 and a pH as low as 7.08. 6. Hyperkalemia. 7. Left ankle fracture, status post open reduction and internal fixation. PLAN: 1. Discontinue IV fluids. 2. Discontinue spironolactone and losartan. Chest x-ray does show evidence of pulmonary congestion. Fluids will be stopped. We will check renal ultrasound and UA. She needs strict I's and O's. She will be transferred to the ICU. She will have a temporary dialysis catheter placed. Informed consent was obtained from the patient as well as her daughter who was present at the bedside. Discussed with RN. Temporary dialysis catheter will be placed today and she will undergo dialysis today and tomorrow. Plan was also discussed with tubular products fabricator. We will gently ultrafilter as tolerated. Thank you for requesting my opinion in the care and management of this patient. <ELECTRONICALLY SIGNED> By: Leroy Eric MD 08/18/21 1318 1313 1946Amili Eric MD /nt
--- NOTE | 2021-08-18 13:44 | NUR ---
PLAN FOR THE PT TO D/C TODAY TO [facility]. TRANSPORTATION ARRANGED WITH [facility] FOR 1400. RN TO CALL REPORT. CM INFORMED PT'S DTR. CM WILL REMAIN AVAILABLE TO ASSIST AND FOLLOW NEEDED. [facility] PHONE: [phone]
--- NOTE | 2021-08-18 14:09 | NUR ---
PT DISCHARGED TO [facility] REPORT CALLED TO ROB SALEEM. PT WAS TAKEN BY [facility]. FOR STRETCHER VAN. MIDLINE REMOVED WITH OUT DIFFICLTY. FERMORAL CATH REMOVED WITH OUT DIFFICULTY. PT DISCHARGED PT DAUGHTER NOTIFIED. PT DENIED PAIN ON DISCHARGE.
--- NOTE | 2021-08-20 21:54 | CON ---
[address] [address] CONSULTATION Name: ERIN MORTENSEN Room: [address] IN M.R.#: [id number] Admission: 08/08/21 Attend Phys: Larisa Dumont MD Discharge: 08/18/21 Date of : 48 Report #: [id number] THIS REPORT FOR: cc: SHMUEL VELEZ APRN, ASHLEY APRN Pervez, Adeel MD ~ DATE OF CONSULTATION: 08/11/2021 REQUESTING PHYSICIAN: Dr. Salazar. INDICATION FOR CONSULTATION: Acute hypercarbic respiratory failure. HISTORY OF PRESENT ILLNESS: A 70-year-old female has a history of morbid obesity, body mass index is 45. She has an extensive history of smoking in the past as well, but is reported to have discontinued more than 25 years ago. The patient does use oxygen while asleep. She is not on a CPAP or BiPAP at home, has at least 2 doses of COVID-19 vaccine. I do not have details available. The patient has had 2 recent admissions to an outside institution with altered mental status, at one point had hypoglycemia as well. She had fallen and had injury to her left lower extremity and therefore was admitted here at this time. She did receive small amounts of narcotics during this admission. She had a total of 6 mg of morphine, 2 tablets of Percocet administered. The patient subsequently developed altered mental status and has received Narcan. There is reported to be some response to Narcan. Her altered mental status; however, appears to be out of proportion to the small amounts of narcotics she has received. There is a further worsening in her respiratory status today. She is markedly drowsy, but arousable. She was on BiPAP overnight. Settings were changed this morning as well this afternoon due to her having significant hypercarbia as well as low pH. She, however, is oxygenating adequately on 40-45% FiO2. She is markedly drowsy and unable to provide a further history or review of systems. PAST MEDICAL HISTORY: Morbid obesity, body mass index is 45; nocturnal hypoxemia, likely due to underlying obstructive sleep apnea and obesity hypoventilation syndrome, not known to me if the patient has refused BiPAP while asleep in the past; atrial fibrillation, on anticoagulation with Coumadin; diabetes; sciatica; COPD; hysterectomy; stomach staple; cholecystectomy. SOCIAL HISTORY: Extensive history of smoking, but discontinued more than 25 years ago. No known history of heavy alcohol use or illegal drug use. CURRENT MEDICATIONS: [place] [address] CONSULTATION Name: ERIN MORTENSEN Room: [address]#: [id number] Admission: 08/08/21 Attend Phys: Larisa Dumont MD Discharge: 08/18/21 Date of : 48 Report #: [id number] HOME MEDICATIONS: List also in [employer] reviewed, amongst other medications noted to be on [place] as well as sotalol at home. PHYSICAL EXAMINATION: GENERAL: She is drowsy. She is arousable. She is on 45% FiO2 with BiPAP. I switched her over to 11/12. She is saturating 97%. She is breathing at the set rate, which is 24. VITAL SIGNS: Has a pulse of 72, blood pressure 107/39. She is afebrile with a temperature of 36.4. HEENT: Head is normocephalic and atraumatic. She has a narrow airway. NECK: Does not show raised JVP, asymmetry, mass or lymph nodes. CHEST: Symmetrical expansion on inspection and palpation. On auscultation, breath sounds are bilaterally equal, but decreased. I do not hear any added sounds. HEART: Irregular, but no murmur. ABDOMEN: Soft and nontender. EXTREMITIES: Lower extremities do show 1+ edema bilaterally. The bandage in place on the left lower extremity. LABORATORY DATA: The patient's chest x-ray shows bilateral radiopaque densities, which could indicate either infiltrates or increase in pulmonary vascular congestion, appears likely to me that there is a combination of the two. Lab work in [facility] reviewed, consistent with acute renal failure. ASSESSMENT AND PLAN: 1. Acute on chronic hypercarbic respiratory failure. In the background, the patient likely has significant obstructive sleep apnea and obesity hypoventilation syndrome, may have COPD as well. The etiology of decompensation now is not fully defined. Note that she has had 2 recent admissions to another hospital for altered mental status as well. She has received small amounts of narcotics. These may have played a role. However, I do not feel that this is likely to be the primary etiology of her decompensation. For now, we will leave her on the BiPAP. We will repeat arterial blood gases. If she fails to improve, then we will consider endotracheal intubation. Repeat arterial blood gas soon is ordered. 2. Altered mental status. See discussion above. Neurology service is also being consulted. 3. Pulmonary infiltrates. She has received at least 2 doses of COVID-19 vaccine, unclear if she received a booster as well. COVID-19 antigen is now negative. PCR is pending. I ordered more cultures and serologies. She is on doxycycline. We went ahead and ordered cefepime as well. Note that after the initial bolus, the doses ordered is 0.5 grams. If her creatinine clearance improves, then this may need to be increased. We will do [place] [address] CONSULTATION Name: ERIN MORTENSEN Room: [address] IN M.R.#: [id number] Admission: 08/08/21 Attend Phys: Larisa Dumont MD Discharge: 08/18/21 Date of : 48 Report #: [id number] 4. Acute on chronic renal failure, baseline creatinine 1.7. I understand that she will be undergoing hemodialysis today, which should help her respiratory failure as well. 5. Obstructive sleep apnea with obesity hypoventilation syndrome, the history is consistent with this. I do not have a previous sleep study available. 6. Bronchospasm. There is likely a component of this as well. She may have underlying chronic obstructive pulmonary disease. I would give her Solu-Medrol. I will also give her nebulized bronchodilators. 7. Atrial fibrillation/long-term anticoagulation with Coumadin. I would like to check a 2D echo as well. 8. Left lower extremity injury, status post open reduction and internal fixation of ankle fracture yesterday. The amount of narcotics administered on the floor is fairly small. I will check and see if she has received more narcotics during the OR as well. 9. Diabetes/hyperglycemia/recent hypoglycemia, insulin sliding scale for now. 10. Gastrointestinal prophylaxis. She is ordered p.o. Protonix. We will switch this to IV Protonix and Pepcid if she continues to not be able to take enteral medications. The patient is critically ill at this time. Total time spent providing critical care to this patient today exceeds 41 minutes. <ELECTRONICALLY SIGNED> By: Jin Bah MD 08/20/21 2154 1348 [id number] Bah MD /nt
--- NOTE | 2021-08-26 12:03 | CON ---
[address] [address] CONSULTATION Name: ERIN MORTENSEN Room: [address] IN M.R.#: [id number] Admission: 08/08/21 Attend Phys: Larisa Dumont MD Discharge: 08/18/21 Date of : 48 Report #: [id number] THIS REPORT FOR: cc: SHMUEL VELEZ APRN, ASHLEY APRN Khosla,Romero Concepcion MD ~ DATE OF CONSULTATION: 08/11/2021 HISTORY OF PRESENT ILLNESS: This is a 70-year-old female patient who was evaluated by [facility] for a neurology consultation when acute changes in the patient's condition was noticed this morning. I do not have any official note from [facility] in the chart, but the nurses note indicated that they had recommended CT angiogram of the head and MRI of the brain. I noticed that her GFR was only [address] to Dr[address] Zaragoza and CT angiogram will probably have a pretty harmful effect on the kidneys and I had recommended an MRI of the brain and MRA of the head and neck. Acute problems were managed by them and a routine neurological consultation was requested for neurological followup in this patient. Dr. Zaragoza has canceled the CT angiogram and scheduled an MRI of the brain and MRA of the head and neck. I came and saw this patient. This patient did not provide any history. She was on BiPAP and was not able to talk and said she does not feel any good. I reviewed the records and got history from them, but most of the history I got when I was able to contact the patient's daughter. This patient lives with her sister. [facility] because she was "insulin coma" but they readjusted her medication and she became better in that regard. She apparently is having walking difficulty. The daughter tells me that she took care of her grandmother, which is this patient's mother and she had ALS and the mother is exhibiting similar symptoms to her. The grandmother's ALS also started when she was in early 70s. The patient had a fall. The circumstances of the fall is not clear. Apparently, she did not hit her head. She also did not hit her spine the best the family can tell, but it was a concrete floor and she was evaluated in the Emergency Room. She has ankle problem for which she had a surgery done. This patient came to Emergency Room on and apparently this change in this patient was an acute change. REVIEW OF SYSTEMS: Pretty extensive in this patient. She has atrial fibrillation and her INR was high. She has COPD and the COPD is longstanding. 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 She has hysterectomy, [place] [address] CONSULTATION Name: ERIN MORTENSEN Room: [address] IN .R.#: [id number] Admission: 08/08/21 Attend Phys: Larisa Dumont MD Discharge: 08/18/21 Date of : 48 Report #: [id number] cholecystectomy and stomach surgery. She apparently does not have any prior history of stroke. The patient's neurology consultation was requested to evaluate the patient for the possibility of stroke and altered mental status and I will confine myself to that as the patient has a lot of other significant problem. This was a relevant 14-point review of system. PAST MEDICAL HISTORY: Positive for numerous medical issues. She has a known kidney problems and she has pretty significant cardiac problems. Past history is negative for stroke. SOCIAL HISTORY: She apparently does not drink alcohol or smoke. FAMILY HISTORY: Positive for ALS in the mother. PHYSICAL EXAMINATION: The patient's examination was very limited. She was able to talk, but I could not understand her, but she was on BiPAP. She moved very little in all 4 extremities for me. She is very short of breath. MRI is masked by all kind of artifact. I could not do much examination, she had very little movement in all 4 extremities when I saw her. She had speech, which is markedly slurred. IMPRESSION: This patient has numerous medical problems. 1. This patient has severe increase in pCO2. Even after treatment, pCO2 is running in 80s. That may be because of chronic obstructive pulmonary disease, but if she has a family history of amyotrophic lateral sclerosis and she is becoming progressively weaker and fall prone, then the possibility of amyotrophic lateral sclerosis in her also need to be excluded which will lead to hypercarbic respiratory failure. That will not be possible at this time and that evaluation needs to be done as an outpatient. 2. This patient does not appear to have any stroke. She is not a TPA candidate just because she is on Coumadin and high INR. Time also has lagged and she was acutely seen by [facility]. MRI and MRA is mostly unremarkable and I do not think we need to do anything further. 3. I am concerned with trauma in this patient. The best I can tell, she did not injure her spine and it happened on , but that was not excluded and need to be excluded, but I do not know how to do that. She is pretty tenuous. We do not want to take her for procedures all the time, but I might start with a spine film in this patient to make sure there is no gross pathology, but sometime along the line, she will need some spine workup because I do not think that was done to complete the workup even if the family says that there was no pathology, especially if she does not start moving her arms and legs. I will talk to other [address] [address] CONSULTATION Name: FESTUSERINPRIYA LEE Room: [address] [place] [facility].#: [id number] Admission: 08/08/21 Attend Phys: Larisa Dumont MD Discharge: 08/18/21 Date of : 48 Report #: [id number] consultants and see what appropriate workup they want to do for spine in this patient, but bedside spine film may be the first thing to start in this patient. As far as possibility of stroke for which a neurology consultation was requested and we do not need to do anything at this moment because I do not think anything can be done, but trauma workup. I will leave it up to them, but will suggest doing some more workup just to make sure there is no pathology. Teleneurology will be covering the service from tomorrow and follow up this patient with you. <ELECTRONICALLY SIGNED> By: Romero Barney MD 08/26/21 1203 1637 [id number] Barney MD /nt
== END 2021-08-18 13:55 | DRG 492 ==
LOC: M.ERS 14:03 → M.3W 15:51 → M.2W 15:51 → M.TBA-ER 15:51 → M.3W 18:12 → M.2W 08-10 17:46 → M.ICU 08-11 15:17 → M.2W 08-14 23:45
PROVIDERS: Family Medicine; Internal Medicine; Internal Medicine Critical Care Medicine; Internal Medicine Nephrology; Pediatrics; ADMIT Internal Medicine; ATTEND Internal Medicine
PROC: 0QSM04Z Reposition Left Tarsal with Internal Fixation Device, Open Approach (ICD-10-PCS; principal; 2021-08-09)
PROC: 0QSK04Z Reposition Left Fibula with Internal Fixation Device, Open Approach (ICD-10-PCS; principal; 2021-08-09)
PROC: 5A1945Z Respiratory Ventilation, 24-96 Consecutive Hours (ICD-10-PCS; 2021-08-13)
PROC: 0BH17EZ Insertion of Endotracheal Airway into Trachea, Via Natural or Artificial Opening (ICD-10-PCS; 2021-08-13)
PROC: 5A09357 Assistance with Respiratory Ventilation, Less than 24 Consecutive Hours, Continuous Positive Airway Pressure (ICD-10-PCS; 2021-08-13)
PROC: B54MZZA Ultrasonography of Right Upper Extremity Veins, Guidance (ICD-10-PCS; 2021-08-13)
PROC: XW033E5 Introduction of Remdesivir Anti-infective into Peripheral Vein, Percutaneous Approach, New Technology Group 5 (ICD-10-PCS; 2021-08-13)
PROC: 05HY33Z Insertion of Infusion Device into Upper Vein, Percutaneous Approach (ICD-10-PCS; 2021-08-13)
PROC: 30233K1 Transfusion of Nonautologous Frozen Plasma into Peripheral Vein, Percutaneous Approach (ICD-10-PCS; 2021-08-13)
DX: S82.842A Displaced bimalleolar fracture of left lower leg, initial encounter for closed fracture (principal); N17.0 Acute kidney failure with tubular necrosis; J96.22 Acute and chronic respiratory failure with hypercapnia; Z68.42 Body mass index [BMI] 45.0-49.9, adult; E87.1 Hypo-osmolality and hyponatremia; Z88.8 Allergy status to other drugs, medicaments and biological substances; I48.91 Unspecified atrial fibrillation; Z79.01 Long term (current) use of anticoagulants; Z20.822 Contact with and (suspected) exposure to COVID-19; I12.9 Hypertensive chronic kidney disease with stage 1 through stage 4 chronic kidney disease, or unspecified chronic kidney disease; N18.30 Chronic kidney disease, stage 3 unspecified; E87.5 Hyperkalemia; Z90.49 Acquired absence of other specified parts of digestive tract; Z87.891 Personal history of nicotine dependence; E66.01 Morbid (severe) obesity due to excess calories